=== PATIENT | male | born 1945 | race Caucasian/White ===

== ENCOUNTER 2020-11-16 07:40 | Day surgery (SDC) | payer MEDICARE ==
[2020-11-15 10:45] VITALS: BMI 28.0
[~2020-11-16 07:40] MED LIST: EPINEPHrine 0.3 MG in Ophthalmic Irrigation Solution 500 ML IRR SCH
[2020-11-16] MEDS ORDERED: Midazolam HCl 2 mg/2 ml Vial ONE (07:49)
[2020-11-16] MEDS ORDERED: Fentanyl 100 MCG/2 ML VIAL ONE (07:49)
[2020-11-16] MEDS ORDERED: Phenylephrine 2.5% Ophth Soln 5 ML BOT ONE (08:11)
[2020-11-16] MEDS ORDERED: Cyclopentolate 1% Opth Drop 2 ML BOT ONE (08:11)
[2020-11-16] MEDS ORDERED: Indocyanine Green 25 MG/10 ML VIAL ONE (09:53)
[2020-11-16] MEDS ORDERED: CEFAZOLIN 1 GM VIAL ONE (09:53)
[2020-11-16] MEDS ORDERED: Lidocaine 4% PF 5 ML AMP ONE (09:53)
[2020-11-16] MEDS ORDERED: Bupivacaine PF 0.75% SDV 10 ML ONE (09:53)
[2020-11-16] MEDS ORDERED: Lidocaine 1% PF 5 ML VIAL ONE (09:53)
[2020-11-16] MEDS ORDERED: Triamcinolone 40 MG/ML VIAL ONE (09:53)
[2020-11-16] MEDS ORDERED: Maxitrol 0.1% Opth Oint 3.5 GM TUBE ONE (09:53)
[2020-11-16] MEDS ORDERED: PROPOFOL 200 MG/20 ML VIAL ONE (09:53)
== END 2020-11-16 11:12 | disposition home or self-care (01) ==
LOC: SDC 07:40
PROVIDERS: ATTEND Ophthalmology Retina Specialist
PROC: 08T53ZZ Resection of Left Vitreous, Percutaneous Approach (ICD-10-PCS; principal; 2020-11-16)
PROC: 08NF3ZZ Release Left Retina, Percutaneous Approach (ICD-10-PCS; 2020-11-16)
DX: H35.342 Macular cyst, hole, or pseudohole, left eye (principal); Z79.899 Other long term (current) drug therapy
CPT/HCPCS: 67025; J0171; J0690; J2250; J2704; J3010; J3301; J3490